=== PATIENT | male | born 2000 | race Caucasian/White ===

== ENCOUNTER 2020-11-14 23:47 | Emergency (ER) | payer SELFPAY ==
[2020-11-15 00:10] VITALS: BP 115/71; PULSE 91; TEMP 98.4; BMI 19.2
== END 2020-11-15 02:49 | disposition home or self-care (01) ==
LOC: JER 23:47
PROC: 0HQ1XZZ Repair Face Skin, External Approach (ICD-10-PCS; principal; 2020-11-14)
DX: S01.81XA Laceration without foreign body of other part of head, initial encounter (principal)
CPT/HCPCS: 99282-25